=== PATIENT | male | born 1945 | race Caucasian/White ===

== ENCOUNTER 2017-09-28 08:10 | Day surgery (SDC) | payer MEDICARE ==
[~2017-09-28] VITALS: Ht 167.6 cm; Wt 72.6 kg
[~2017-09-28 08:10] MED LIST: ASPIRIN325 MG PO; COREG3.125 MG PO; DAILY VALUE1 EACH PO; FLUOXETINE HCL40 MG PO; HYDROCHLOROTHIA25 MG PO; K-TAB ER20 MEQ PO; LISINOPRIL20 MG PO; PLAVIX75 MG PO; ZETIA10 MG PO
--- NOTE | 2017-09-28 13:23 | NUR ---
09/28/17 1323 Marla Pope 1300- RESP EVEN AND UNLABORED. VSS. ASLEEP. MAINTAINING AIRWAY. 1315 PT WOKE UP AND REPORTS PAIN 4/10 AND TOLERABLE. 1312 MD AT BEDSIDE
[2017-09-28] MEDS ORDERED: NORCO 10-325 T1 EACH PO (14:10)
--- NOTE | 2017-09-28 14:34 | NUR ---
PT ALERT, ORIENTED AND SUPPORTED BY HIS GEOFFREY. THEY BOTH WERE CONCERNED ABOUT BEING AWAY FROM HOME NOW-THEIR SHEEP ARE READY TO START LAMBING. HAS HAD SURGERY BEFORE, REQUESTED PRAYER. WILL FOLLOW NEEDED
[2017-09-28] MEDS ORDERED: TRAMADOL HCL50 MG PO (15:44)
--- NOTE | 2017-09-28 16:21 | NUR ---
1600: PATIENT TOLERATED JELLO, SOUP, AND CRACKERS. REQUESTS PAIN MEDS. 1610: PATIENT DECLINED TO TAKE NORCO PRESCRIBED BY DR. ZAPATA. STATES IT HAS MADE HIM SICK IN THE PAST. PATIENT AND REQUEST SCRIPT FOR TRAMADOL. CALL PLACED TO DR. ZAPATA. 1615: NEW SCRIPT FOR TRAMADOL RECEIVED FROM DR. QUEZADA ON BEHALF OF DR. ZAPATA. PATIENT GIVEN IV DILAUDID FOR PAIN WHILE STILL HERE IN HOSPITAL. 1620: DISCHARGE INSTRUCTIONS GIVEN TO PATIENT AND . PATIENT ASSISTED OOB AND TO BATHROOM. GAIT SLOW BUT STEADY. VOID WITHOUT DIFFICULTY. PATIENT ASSISTED BACK TO ROOM. GETTING DRESSED WITH HELP FROM .
--- NOTE | 2017-09-28 16:43 | NUR ---
PATIENT HAD INCREASING PAIN AFTER GETTING DRESSED. REQUESTED PAIN MEDICATION. IV DILAUDID GIVEN FOR PAIN. PATIENT WILL WAIT FOR OBSERVATION PERIOD BEFORE BEING DISCHARGED.
--- NOTE | 2017-09-28 17:01 | NUR ---
1655 PT STATES READY TO GO . THEY ARE STAYING IN [facility]. OFFERED TO CALL DR ZAPATA IF HE NEEDED MORE TIME AND STATES NO HES READY TO GO.
--- NOTE | 2017-09-29 16:42 | OR ---
[facility] [address] [place], [place] [address] Signed DATE OF OPERATION: 09/28/2017 SURGEON: Cyn Mercedes MD PREOPERATIVE DIAGNOSIS: Reducible recurrent left inguinal hernia. POSTOPERATIVE DIAGNOSIS: Reducible recurrent left indirect sliding inguinal hernia. PROCEDURE: Left Bhavesh onlay mesh inguinal herniorrhaphy. ESTIMATED BLOOD LOSS: None. INDICATIONS: Freddie is a 72-year-old gentleman, asked to see me for two separate hernias. He was the first person to have open heart surgery over in [place], [place]. He has a recurrent hernia just below the left subcostal margin several centimeters below the xiphoid process. He can feel some pressure there, but he can also feel pressure and swelling in his left groin. He told me when he was 41 years old in 1985, he had bilateral inguinal hernia repairs done in [place], [place]. That would be prior to mesh. 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 He has to lift 100-pound hay damien every day. The other night, the pain was so bad in his left groin. He almost went to the emergency room. He finally went to his primary care provider. He was then asked to see ME a general surgeon. On exam, it was difficult to know whether or not he had a hernia below the xiphoid process. In addition, I could feel an opening in the left groin with a little bulging coming through, but it was also difficult to ascertain the hernia. The right groin seemed unremarkable. Both testicles were a little larger than usual, but I could not specifically feel hydroceles. Consequently, we asked that he undergo ultrasound of both areas. Indeed, he does have a recurrent hernia below the xiphoid process, but he also has an ultrasound in the left groin containing bowel. They live over an hour away. He had asked that we call him on the phone. We went ahead and called him and went through this with him over the phone and he wanted to schedule repair of his left inguinal hernia. In the office, I had already given him a booklet on hernias. We looked at that together in detail. I had shown him dissection for inguinal hernias. He understands the difference between a primary suture repair and a mesh repair. He also understands the expected intraop and postop course. There is risk of surgery including, but not limited to bleeding, Electronically Signed By: CYN MERCEDES MD 09/29/17 1642 PATIENT NAME: FREDDIE HERNANDEZ OPERATIVE REPORT DATE OF : 43 PHYSICIAN: CYN MERCEDES MD REPORT #: [id number] REPORT IS CONFIDENTIAL AND NOT TO BE RELEASED WITHOUT AUTHORIZATION [address] [address] Signed infection, scarring, change in contour of the skin, damage to the nerves, ischemic orchitis, recurrent hernias and chronic pain. He had expressed understanding and wished to proceed. DESCRIPTION OF PROCEDURE: I met with Freddie and his in our preop area. We all agreed it was his left groin and we marked that appropriately. After this, he was taken in the operating room and placed in the supine position under general LMA anesthesia. He was given preoperative antibiotics along with subcutaneous heparin. SCDs were utilized. He was then prepped and draped in the usual sterile fashion. He had a standard curvilinear incision over the left groin from his prior surgery. We used the full length of that incision and opened it sharply with a knife. We then used the cautery and blunt dissection to pass down to the external oblique. The external oblique fascia was opened along its length and we had developed it medially and laterally. As expected above the deep ring, there was no scar tissue, but as we came down to the level of deep ring and then below, there was significant scar tissue all the way down the pubic tubercle. Eventually, we had the external oblique from internal oblique on the medial side of the inguinal canal. We then the cord structures carefully and mostly bluntly, but some with cautery down along the ilioinguinal ligament until it was completely freed just distal to the pubic tubercle. On inspection, he had a little weakness in the direct space, but his main hernia was at the deep ring. His cord structures were actually scarred to the deep ring on the inferior edge and he had sigmoid colon coming through the deep ring just cephalad to the cord structures. It took a few minutes to separate the sigmoid colon from the cord structures with blunt dissection. We had opened up the hernia sac and we just looked inside and make sure we had the full extent of sigmoid colon free from the cord structures as well as the deep ring. We then closed the hernia sac as it was a sliding type hernia. We were able then easily to reduce his sigmoid colon. It took just a few more minutes to free up the cord structures from an inferior edge of the deep ring. The deep ring was 2.5, maybe 3 cm in diameter. Because of this, we needed to reapproximate and restructure the deep ring, much like a Doreen repair. We had to sacrifice the iliohypogastric nerve in order to do that. We searched and searched and we never could find the ilioinguinal nerve. After this, we used interrupted #1 [id number] Prolene sutures to reconstruct the deep ring. We placed two inferiorly and two superiorly to reapproximate the deep ring. I could just barely fit the tip of my finger into the deep ring along with the cord structures. We could easily identify the pampiniform plexus and the vas deferens. However, the cord structure was a bit thinned out and he certainly is at risk for ischemic orchitis. After this, we cut a piece of flat Prolene mesh to fit his groin. A slit was made in the mesh to accommodate the cord structures at the level of the deep ring. The mesh was held in place medially and laterally with help of running #1 Prolene suture. This gave good overlap of the direct and indirect spaces. The wound was then irrigated and suctioned out until clear. We injected local anesthetic throughout the wound. The external oblique fascia was then Electronically Signed By: CYN MERCEDES MD 09/29/17 1642 PATIENT NAME: FREDDIE HERNANDEZ OPERATIVE REPORT DATE OF : 43 PHYSICIAN: CYN MERCEDES MD REPORT #: [id number] REPORT IS CONFIDENTIAL AND NOT TO BE RELEASED WITHOUT AUTHORIZATION [address] [address] Signed closed over the repair with the help of a running 2-0 PDS suture. We did place a little tension on the left testicle. We brought the cord structures down in a straight line. After this, the Daron's fascia was reapproximated with a running 3-0 Monocryl suture. The dermis was reapproximated with interrupted 3-0 subcuticular Monocryl sutures. The skin edges were reapproximated with a running 6-0 fast absorbing plain gut suture. Dry gauze and tape were then applied. Freddie was then awakened from his anesthesia, extubated in the OR and taken to recovery room in stable condition. Cyn Mercedes MD ALB/MODL /[id number] cc: MD Freddie Dhillon MD Electronically Signed By: CYN MERCEDES MD 09/29/17 1642 PATIENT NAME: FREDDIE HERNANDEZ OPERATIVE REPORT DATE OF : 43 PHYSICIAN: CYN MERCEDES MD REPORT #: [id number] REPORT IS CONFIDENTIAL AND NOT TO BE RELEASED WITHOUT AUTHORIZATION
== END 2017-09-28 16:55 | disposition home or self-care (01) ==
LOC: DS 08:10
PROVIDERS: Colon & Rectal Surgery
PROC: 0YU60JZ Supplement Left Inguinal Region with Synthetic Substitute, Open Approach (ICD-10-PCS; principal; 2017-09-28 10:45)
DX: K40.91 Unilateral inguinal hernia, without obstruction or gangrene, recurrent (principal); I25.10 Atherosclerotic heart disease of native coronary artery without angina pectoris; I10 Essential (primary) hypertension; E78.5 Hyperlipidemia, unspecified; F32.9 Major depressive disorder, single episode, unspecified; F43.12 Post-traumatic stress disorder, chronic; M48.02 Spinal stenosis, cervical region; Z79.82 Long term (current) use of aspirin; Z79.899 Other long term (current) drug therapy; Z88.5 Allergy status to narcotic agent; Z95.5 Presence of coronary angioplasty implant and graft; Z98.890 Other specified postprocedural states
CPT/HCPCS: 00830; C1781; J0330; J0690; J1100; J1170; J1644; J2250; J2405; J2704; J2710; J3010; J7120